=== PATIENT | female | born 1985 | race Two or more races ===

== ENCOUNTER 2018-04-05 06:13 | Inpatient (IN) | payer OTHER ==
[~2018-04-05] VITALS: Ht 160 cm; Wt 82.2 kg
[~2018-04-05 06:13] MED LIST: PRENATALS
[2018-04-05] MEDS ORDERED: OXYTOCIN 30U/ 0.9% NaCL 500ML 500 ML IV ONE (06:15)
[2018-04-05] MEDS ORDERED: LIDOCAINE 1%, 50ML ONE (06:19)
[2018-04-05] MEDS ORDERED: NEWBORN KIT ONE (06:19)
[2018-04-05] MEDS ORDERED: OXYTOCIN 30U/ 0.9% NaCL 500ML 500 ML ONE ×2 (06:20→15:45)
[2018-04-05] MEDS ORDERED: MISOPROSTOL 200 MCG TABLET ONE (06:20)
[2018-04-05 06:22] VITALS: BP 118/81
[2018-04-05] MEDS ORDERED: FENTANYL PF 100 MCG/2ML IV PRN (06:30)
[2018-04-05] MEDS ORDERED: ONDANSETRON 2MG/ML, 2ML IVPush PRN (06:30)
[2018-04-05] MEDS ORDERED: FENTANYL PF 100 MCG/2ML IVPush PRN (06:30)
[2018-04-05] MEDS ORDERED: PREN-3 PO (06:31)
[2018-04-05] MEDS ORDERED: DOCU-131 PO (06:31)
[2018-04-05 06:39] LABS: BASOPHILS # (AUTO) 0.04 x10^3/uL (0-0.1); BASOPHILS % (AUTO) 1 % (0-1); EOSINOPHILS # (AUTO) 0.11 x10^3/uL (0-0.4); EOSINOPHILS % (AUTO) 1 % (1-7); LYMPHOCYTES # (AUTO) 2.73 x10^3/uL (1-3.4); LYMPHOCYTES % (AUTO) 35 % (22-44); MD NO; MEAN CORPUSCULAR HEMOGLOBIN 27.6 pg (27.0-34.8); MEAN CORPUSCULAR HGB CONC 33.7 g/dL (32.4-35.8); MEAN CORPUSCULAR VOLUME 82.1 fL (80-100); MEAN PLATELET VOLUME 8.9 fL (7.4-10.4); MONOCYTES # (AUTO) 0.37 x10^3/uL (0.2-0.8); MONOCYTES % (AUTO) 5 % (2-9); NEUTROPHILS # (AUTO) 4.47 x10^3/uL (1.8-6.8); NEUTROPHILS % (AUTO) 58 % (42-75); PLATELET COUNT 209 x10^3/uL (130-400); RED BLOOD COUNT 3.92 x10^6/uL (3.82-5.3); RED CELL DISTRIBUTION WIDTH 13.6 % (9.6-15.2)
[2018-04-05] MEDS: LACTATED RINGERS 1,000 ML IV SCH ×2 (06:51→10:58)
[2018-04-05] MEDS ORDERED: OXYTOCIN 30U/ 0.9% NaCL 500ML 500 ML IV PRN (07:08)
[2018-04-05] MEDS ORDERED: AMPICILLIN 2 GM in SODIUM CHLORIDE 0.9% 100 ML IVPB STA (07:08)
[2018-04-05] MEDS ORDERED: AMPICILLIN 1 GM in SODIUM CHLORIDE 0.9% 100 ML IVPB SCH (07:30)
[2018-04-05] MEDS ORDERED: OXYcodone/APAP 5/325MG TABLET PO PRN ×2 (09:30)
[2018-04-05] MEDS ORDERED: MISOPROSTOL 200 MCG TABLET PR PRN (09:30)
[2018-04-05] MEDS ORDERED: ONDANSETRON 2MG/ML, 2ML IV PRN (09:30)
[2018-04-05] MEDS ORDERED: FENTANYL/BUPIV./NS/PF 250 ML EPIDCONT SCH (10:08)
[2018-04-05] MEDS ORDERED: FENTANYL PF 100 MCG/2ML ONE (10:22)
[2018-04-05] MEDS ORDERED: BUPIVACAINE 0.25% ONE (10:57)
[2018-04-05] MEDS ORDERED: ONDANSETRON 2MG/ML, 2ML ONE (13:20)
[2018-04-05] MEDS ORDERED: IBUPROFEN 600 MG TABLET ONE (15:11)
[2018-04-05] MEDS: IBUPROFEN 600 MG TABLET PO PRN (15:13)
[2018-04-05] MEDS: OXYTOCIN 30U/ 0.9% NaCL 500ML 500 ML IV SCH ×2 (15:54→19:30)
[2018-04-05 16:45] VITALS: BP 136/88
[2018-04-05 18:05] VITALS: BP 131/80
[2018-04-05 19:50] VITALS: BP 126/84
[2018-04-06 01:20] VITALS: BP 116/80
[2018-04-06] MEDS: IBUPROFEN 600 MG TABLET PO PRN ×3 (01:25→17:18)
[2018-04-06 05:10] VITALS: BP 113/74
[2018-04-06] MEDS: OXYTOCIN 30U/ 0.9% NaCL 500ML 500 ML IV SCH ×2 (05:30→15:30)
[2018-04-06] MEDS ORDERED: MEASLES,MUMPS&RUBELLA VACC/PF 0.5 ML SQ-VACC ONE (05:30)
[2018-04-06 06:25] LABS: BASOPHILS # (AUTO) 0.04 x10^3/uL (0-0.1); BASOPHILS % (AUTO) 0 % (0-1); EOSINOPHILS # (AUTO) 0.06 x10^3/uL (0-0.4); EOSINOPHILS % (AUTO) 1 % (1-7); LYMPHOCYTES # (AUTO) 2.11 x10^3/uL (1-3.4); LYMPHOCYTES % (AUTO) 18 % (22-44); MD NO; MEAN CORPUSCULAR HEMOGLOBIN 28.1 pg (27.0-34.8); MEAN CORPUSCULAR HGB CONC 33.6 g/dL (32.4-35.8); MEAN CORPUSCULAR VOLUME 83.6 fL (80-100); MONOCYTES # (AUTO) 0.63 x10^3/uL (0.2-0.8); MONOCYTES % (AUTO) 5 % (2-9); NEUTROPHILS # (AUTO) 8.93 x10^3/uL (1.8-6.8); NEUTROPHILS % (AUTO) 76 % (42-75); PLATELET COUNT 180 x10^3/uL (130-400); RED BLOOD COUNT 3.45 x10^6/uL (3.82-5.3); RED CELL DISTRIBUTION WIDTH 14.2 % (9.6-15.2)
[2018-04-06 08:00] VITALS: BP 115/77
[2018-04-06] MEDS: PRENATAL VIT/IRON/FA 1 EACH TABLET PO SCH (08:51)
[2018-04-06 14:21] VITALS: BP 120/80
[2018-04-06 20:10] VITALS: BP 111/76
[2018-04-06] MEDS: DOCUSATE 100 MG CAPSULE PO PRN (21:36)
[2018-04-07] MEDS: OXYTOCIN 30U/ 0.9% NaCL 500ML 500 ML IV SCH (01:30)
[2018-04-07 08:37] VITALS: BP 108/71
[2018-04-07] MEDS: PRENATAL VIT/IRON/FA 1 EACH TABLET PO SCH (08:48)
[2018-04-07] MEDS: IBUPROFEN 600 MG TABLET PO PRN (08:48)
[2018-04-07] MEDS: DOCUSATE 100 MG CAPSULE PO PRN (08:48)
== END 2018-04-07 10:29 | disposition home or self-care (01) | DRG 775 ==
LOC: LDIP 06:13 → 2NW 16:24
PROVIDERS: ADMIT Obstetrics & Gynecology; ATTEND Obstetrics & Gynecology
PROC: 10E0XZZ Delivery of Products of Conception, External Approach (ICD-10-PCS; principal; 2018-04-05)
PROC: 0HQ9XZZ Repair Perineum Skin, External Approach (ICD-10-PCS; 2018-04-05)
PROC: 3E0R3BZ Introduction of Anesthetic Agent into Spinal Canal, Percutaneous Approach (ICD-10-PCS; 2018-04-05)
PROC: 00HU33Z Insertion of Infusion Device into Spinal Canal, Percutaneous Approach (ICD-10-PCS; 2018-04-05)
DX: O24.420 Gestational diabetes mellitus in childbirth, diet controlled (principal); Z37.0 Single live birth; O99.824 Streptococcus B carrier state complicating childbirth; Z82.49 Family history of ischemic heart disease and other diseases of the circulatory system; Z83.3 Family history of diabetes mellitus; Z3A.39 39 weeks gestation of pregnancy; O70.0 First degree perineal laceration during delivery
CPT/HCPCS: 36415; 82962; 85025; 86850; 86900; G0378; J0290; J3010; J2590; J7120